=== PATIENT | female | born 1980 | race Two or more races ===

== ENCOUNTER 2024-11-02 07:35 | Emergency (ER) | payer MEDICAID, SELFPAY ==
[2024-11-02 07:45] VITALS: BP 141/80; PULSE 69; RESP 19; TEMP 36.8; O2SAT 100; BMI 30.5
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
--- NOTE | 2024-11-02 07:55 | XR_ITS ---
Examination: PA chest single view TECHNIQUE: Upright PA chest single view Exam date and time: November 02, 2024 0822 hours INDICATIONS: Chest pain shortness of breath beginning one week ago. FINDINGS: Normal heart size. Lungs are clear. The osseous structures are intact IMPRESSION: No active disease
[2024-11-02] MEDS: ALPRazoLAM 0.25 MG TABLET 0.5 MG PO (08:05)
--- NOTE | 2024-11-02 08:07 | EDNOTE_ITS ---
ED Chest Pain RME/HPI General Chief Complaint: Chest Pain Stated Complaint: CHEST PAIN WITH PALPITATIONS X 2 MONTHS Time Seen by Provider: 11/02/24 07:42 Arrival date/time: 11/02/24 07:35 RME / HPI RME / HPI narrative: This section includes all my notes and documentations, including HPI, PE, and ED course.? Wero Berry MD HPI: 44 year old female with no chronic medical history presents to the ED for evaluation of left sided chest tightness beginning at 1AM today, that woke her from sleep. Rating 7/10 in severity. Accompanied by palpitations and feeling anxious. Denies receiving any stressful news/events last night. Denies recent illness, cough, shortness of breath, fevers, chills, sweats, abdominal pain, nausea, vomiting. No other complaints reported. Reports similar symptoms on and off for the past couple of months. ROS: All negative except as documented in HPI. Physical Exam: General:? Alert and oriented.? Appears anxious. Eyes:? Conjunctivae and lids clear.? ENT:? No nasal congestion.? Neck:? Supple.? Heart:? RRR.? Lungs:? No respiratory distress.? Good air movement.? No rhonchi, wheezing, rales.?? Abdomen:? Soft and nontender.?? Legs:? No clubbing, cyanosis, edema.? Skin:? Warm and dry.?? Neuro:? Alert and oriented X 3.?? I reviewed all diagnostic test results. My interpretation of the EKG is?Sinus rhythm (73 bpm) with nonspecific ST-T changes. My interpretation of the chest x-ray is no acute findings, official radiology report is pending. Blood tests unremarkable, including negative troponin. At this point, diagnoses include?anxiety reaction. Treatment here included?Xanax. Significant improvement noted. Recommended more outpatient cardiac workup. Based on my best medical judgment, made decision no further evaluation or treatment indicated at this time.? Patient understands and agrees to the discharge instructions customized and printed, see below. Discharge instructions from Dr. Berry: 1. After extensive evaluation, there is no life-threatening condition.? Such as heart attack or pneumothorax (collapsed lung). 2. Your symptoms may be due to underlying stress or anxiety or nerves.? This is fairly common. 3. Take Xanax and/or metoprolol as needed.? Whether this helps or not will be valuable information to your private doctors. 4. See a private doctor on 10/24/2024 for recheck and further care. Ask to review all test results and official radiology reports, to make sure you receive all necessary follow-ups and monitoring. To make sure there is no serious underlying heart condition, ask to help you get more tests for your heart that cannot be done here in the ER.? Such as Holter Monitor (cardiac monitoring at home from a day to even a month), heart stress test (on treadmill or with medication), echocardiogram (imaging of your heart structures), heart catherization (checking for blockages in your heart arteries), and a referral to see a Wealth Management Director. 5. Seek immediate medical care with worsening or with any concerns.?? Wero Berry MD Related Data Previous Rx's ?Medication ?Instructions ?Recorded docusate sodium 100 mg capsule 100 mg PO BID #40 caps 07/01/23 (Colace) hydrocodone 5 mg-acetaminophen 325 1 tab PO Q6H PRN pa in (scale score 07/01/23 mg tablet 7-10) #20 tabs ibuprofen 600 mg tablet 600 mg PO Q8H PRN pain (scal e 07/01/23 score 4-6) #15 tabs alprazolam 0.5 mg tablet (Xanax) 0.5 mg PO BID PRN anx iety #10 tabs 11/02/24 metoprolol tartrate 25 mg tablet 25 mg PO QDAY PRN anx iety #20 tabs 11/02/24 Allergies Allergy/AdvReac Type Severity Reaction Status Date / Time No Known Allergies Allergy Verified 11/02/24 07:36 Review of Systems Review of Systems Systems Reviewed: All systems reviewed, normal except as documented Past Medical History Past Medical History GASTROINTESTINAL: Positive Gastrointestinal Disorders, Gall Bladder Disease and Obesity REPRODUCTIVE: Positive Previous Pregnancies (3) HEMATOLOGIC: Positive Blood Disorders and Anemia Family History FAMILY HISTORY: Positive Family Cardiac Disorders and Family Surgery Surgical History SURGICAL: Negative Section Social History SMOKING STATUS: Never smoker SECOND HAND EXPOSURE: No ED Exam Narrative Physical exam: As noted in HPI Course Quality Measures none Orders Category Date Time Status EKG (ED ONLY) *Do not use* NOW Care 11/02/24 07:45 Completed EKG (ED Only) Stat Exams 11/02/24 07:45 Draft XR chest 1V portable Stat Exams 11/02/24 07:55 Taken CBC Stat Lab 11/02/24 08:07 Completed CMP [Comprehensive Metabolic Panel] Stat Lab 11/02/24 08:07 Completed Magnesium Stat Lab 11/02/24 08:07 Completed TSH [Thyroid Stimulating Hormone] Stat Lab 11/02/24 08:07 Completed Troponin I Stat Lab 11/02/24 08:07 Completed ALPRazoLAM [Xanax] Med 11/02/24 07:54 Discontinued 0.5 mg PO X1 ONE Vital Signs Vital signs: Vital Signs Temperature 98.2 F 11/02/24 07:45 Pulse Rate 69 11/02/24 07:45 Respiratory Rate 19 11/02/24 07:45 Blood Pressure 141/80 H 11/02/24 07:45 Pulse Oximetry (%) 100 11/02/24 07:45 Oxygen Delivery Method Room Air 11/02/24 07:45 Pulse ox is 100% on room air which is adequate. Chest Pain MDM Narrative MDM Narrative:: Elena Barcenas am scribing for and in the presence of Dr. Berry. Patient data External records reviewed:: [facility] previous records (I reviewed H&P on 07/01/2023) Clinical information provided by:: patient Social determinants that could affect healthcare access:: none Patient has the following chronic illnesses:: Prediabetic How is presenting disease/condition affected by chronic disease/condition?: uneffected by Evaluation data The following diagnostics were reviewed and interpreted by me:: lab results, radiology exam(s) and EKG tracing(s) (My interpretation of the EKG is: Sinus rhythm (73 bpm) with nonspecific ST-T changes. Wero Berry MD) Lab and/or radiology exams considered but not ordered:: None Interpretation Summary: Normal diagnostics Medications / Prescriptions Medications or Prescriptions considered but not ordered:: None Medication administrations:: Medication Administration History Discontinued Medications Alprazolam (Alprazolam 0.25 Mg Tablet) 0.5 mg PO X1 ONE Stop: 11/02/24 07:55 Last Admin: 11/02/24 08:05 Dose: 0.5 mg Documented By: DO Patient given Xanax Consultations Consultation(s) initiated? (list below): No Diagnosis Chest Pain Differential Diagnosis: pneumothorax, atypical chest pain, st elevation myocardial infarction, costochondritis, chest pain and other (Anxiety ) Most likely diagnosis given after review of the tests above:: Anxiety reaction Admission Indicated Admission indicated?: not indicated Explain why admission is indicated or not indicated:: Admission criteria not met Admission Request Was there a request for admission?: No Disposition Plan Disposition Plan: Discharge Discharge Attestation Discharge Attestation: The patient and all family members were given an opportunity to ask questions and understood the discharge instructions. Discharge instructions specifically effects, indications for sooner follow up or return to the emergency department, and the expected course of current diagnosis. Patient condition: Stable Discharge Plan Plan Patient Disposition: HOME (Self Care) Prescriptions/Referrals Prescriptions/Med Rec: New metoprolol tartrate 25 mg tablet 25 mg PO QDAY PRN (Reason: anxiety) Qty: 20 0RF alprazolam [Xanax] 0.5 mg tablet 0.5 mg PO BID PRN (Reason: anxiety) Qty: 10 0RF No Action docusate sodium [Colace] 100 mg capsule 100 mg PO BID Qty: 40 0RF hydrocodone-acetaminophen 5-325 mg tablet 1 tab PO Q6H MDD 4 PRN (Reason: pain (scale score 7-10)) Qty: 20 0RF ibuprofen 600 mg tablet 600 mg PO Q8H PRN (Reason: pain (scale score 4-6)) Qty: 15 0RF Referrals: Maldonado Lozano MD [Primary Care Provider] - In 1 week Problem List Clinical Impression: Palpitations Patient/Caregiver Discharge Instructions Discharge Activity: activity as tolerated Education Materials: ED Anxiety Reaction, ED Panic Attack Additional Instructions: Discharge instructions from Dr. Berry: 1. After extensive evaluation, there is no life-threatening condition.? Such as heart attack or pneumothorax (collapsed lung). 2. Your symptoms may be due to underlying stress or anxiety or nerves.? This is fairly common. 3. Take Xanax and/or metoprolol as needed.? Whether this helps or not will be valuable information to your private doctors. 4. See a private doctor on 10/24/2024 for recheck and further care. Ask to review all test results and official radiology reports, to make sure you receive all necessary follow-ups and monitoring. To make sure there is no serious underlying heart condition, ask to help you get more tests for your heart that cannot be done here in the ER.? Such as Holter Monitor (cardiac monitoring at home from a day to even a month), heart stress test (on treadmill or with medication), echocardiogram (imaging of your heart structures), heart catherization (checking for blockages in your heart arteries), and a referral to see a Wealth Management Director. 5. Seek immediate medical care with worsening or with any concerns.?? Instrucciones de tanvir del Dr. Berry: 1. Despu?s de kristi evaluaci?n exhaustiva, no hay ninguna afecci?n que ponga en peligro la polo, kartik un ataque card?aco o un neumot?rax (colapso pulmonar). 2. Rohan s?ntomas pueden deberse a estr?s, ansiedad o nervios subyacentes. [place] es bastante com?n. 3. [place] Xanax o metoprolol seg?n sea necesario. Si esto ayuda o no, ser? kristi informaci?n valiosa para rohan m?dicos privados. 4. Visite a un m?dico privado el 24/10/2024 para un nuevo control y m?s atenci?n. Pida revisar todos los resultados de las pruebas y los informes radiol?gicos oficiales, para asegurarse de recibir todos los seguimientos y la monitorizaci?n necesarios. Para asegurarse de que no haya kristi afecci?n card?twan subyacente grave, pida ayuda para que le realicen m?s pruebas para el coraz?n que no se pueden realizar aqu? en la jaskaran de emergencias. [place] por ejemplo, un monitor Holter (monitoreo card?aco en el hogar que dura desde un d?a hasta un mes), kristi prueba de esfuerzo card?aco (en kristi cinta de correr o con medicaci?n), un ecocardiograma (im?genes de las estructuras del coraz?n), un cateterismo card?aco (para comprobar si hay obstrucciones en las arterias del coraz?n) y kristi derivaci?n para suzy a un cardi?logo. 5. Busque atenci?n m?dica inmediata si dsouza estado empeora o si tiene alguna inquietud. Print Language: [place] Stand Alone Forms: Kait Award Info., Patient Portal Info Letter
[2024-11-02 08:39] LABS: Basophils % (Auto) 0 % (0-2.5); Eosinophils # (Auto) 0.1 Thou/mm3 (0.0-0.5); Eosinophils % (Auto) 1 % (0-10); Hematocrit 38.4 % (36.0-46.0); Hemoglobin 12.3 g/dL (12.0-16.0); Immature Granulocytes % (Auto) 0 % (0-0); Immature Granulocytes Auto 0.02 Thou/mm3 (0.00-0.00); Lymphocytes # (Auto) 1.4 Thou/mm3 (1.0-4.8); Lymphocytes % (Auto) 19 % (10-50); Mean Corpuscular Hemoglobin 26.3 pg (25.0-35.0); Mean Corpuscular Volume 82 fL (80-100); Monocytes # (Auto) 0.3 Thou/mm3 (0.0-0.8); Monocytes % (Auto) 5 % (0-12); Neutrophils # (Auto) 5.4 Thou/mm3 (1.8-7.7); Neutrophils % (Auto) 75 % (37-80); Nucleated Red Blood Cell % 0 /100 WBC (0); Platelet Count 199 Thou/mm3 (140-440); RDW Standard Deviation 40.1 fL (36.4-46.3); Red Blood Count 4.68 Miln/mm3 (4.00-5.20); White Blood Count 7.2 Thou/mm3 (3.6-11.0)
[2024-11-02 09:07] LABS: Alanine Aminotransferase 12 U/L (10-49); Albumin, Serum 4.8 gm/dL (3.5-5.0); Albumin/Globulin Ratio 1.5 (1.2-2.2); Alkaline Phosphatase 82 U/L (46-116); Anion Gap 9 (7-16); Aspartate Amino Transferase 18 U/L (0-34); BUN/Creatinine Ratio 11 Ratio (12-20); Bilirubin,Total 0.4 mg/dL (0.3-1.2); Blood Urea Nitrogen 8 mg/dL (9-23); Calcium 9.8 mg/dL (8.3-10.6); Calcium (Corrected) 9.8 mg/dL (8.5-10.1); Carbon Dioxide 27.2 mMol/L (20.0-31.0); Chloride 102 mMol/L (98-107); Creatinine (Component) 0.7 mg/dL (0.6-1.3); Estimated Creatinine Clearance 117.1 mL/min (>60); Globulin 3.1 gm/dL (2.3-3.5); Glucose 114 mg/dL (74-106); Osmolality,Calculated 274 (275-295); Potassium 3.8 mMol/L (3.4-5.1); Sodium 138 mMol/L (136-145); Thyroid Stimulating Hormone 1.92 uIU/mL (0.55-4.78); Total Protein 7.9 gm/dL (5.7-8.2); Troponin I < 0.020 ng/mL (0.0-0.045); eGFR > 60 See Note
== END 2024-11-02 10:15 | disposition home or self-care (01) ==
PROVIDERS: Emergency Provider Emergency Medicine; PCP Family Medicine
DX: R00.2 Palpitations (principal); R07.89 Other chest pain; R06.02 Shortness of breath; F41.1 Generalized anxiety disorder; I49.8 Other specified cardiac arrhythmias
CPT/HCPCS: 36415; 71045; 80053; 83735; 84443; 84484; 85025; 93005; 99283; A9270